=== PATIENT | male | born 1990 | race Caucasian/White ===

== ENCOUNTER 2017-01-10 00:56 | Emergency (ER) | payer OTHER ==
--- NOTE | 2017-01-10 01:02 | EDPHY ---
H & P Source: Patient, Police HPI/ROS: HPI CHIEF COMPLAINT: M1 hold, alcohol intoxication, suicidal ideation HISTORY OF PRESENT ILLNESS: This patient very pleasant 26-year-old male no significant medical history no history of mental health illness, presents emergency room on M1 hold by [facility] after got into an argument with his girlfriend about how much alcohol he drinks. Patient states he drinks about 6-8 beers per evening. He was drinking tonight. He does endorse being intoxicated. He denies any illicit drug use. He got into argument with his girlfriend about how much he drinks and states that he became upset was suicidal his plan was to jump out of his window which is 18 feet high. He denies any ingestion. Past Medical History: No significant medical history Past Surgical History: Hernia repair as a child Social History: Daily alcohol use 6-8 beers, smokes tobacco daily 2 cigarettes , smokes marijuana intermittently Family History: Noncontributory ROS REVIEW OF SYSTEMS: A comprehensive 10 point review of systems is otherwise negative aside from elements mentioned in the history of present illness. Exam Constitutional intoxicated, smells of alcohol, triage nursing summary reviewed , vital signs reviewed, awake/alert. Eyes normal conjunctivae and sclera, EOMI, PERRLA. HENT normal inspection, atraumatic, moist mucus membranes, no epistaxis, neck supple/ no meningismus, no raccoon eyes. Respiratory clear to auscultation bilaterally, normal breath sounds, no respiratory distress, no wheezing. Cardiovascular rate normal, regular rhythm, no murmur, no edema, distal pulses normal. Gastrointestinal soft, non-tender, no rebound, no guarding, normal bowel sounds, no distension, no pulsatile mass. Genitourinary no CVA tenderness. Musculoskeletal no midline vertebral tenderness, full range of motion, no calf swelling, no tenderness of extremities, no meningismus, good pulses, neurovascularly intact. Skin pink, warm, & dry, no rash, skin atraumatic. Neurologic awake, alert and oriented x 3, AAOx3, moves all 4 extremities equally, motor intact, sensory intact, CN II-XII intact, normal cerebellar, normal vision, normal speech. Psychiatric normal mood/affect. Heme/Lymph/Immune no lymphadenopathy. Differential Diagnosis: Includes but is not limited to in a particular order acute alcohol intoxication, suicidal ideation, depression, mood disorder Medical Decision Making: Plan for this patient blood draw for medical clearance. Patient is on M1 hold. He will need sobriety for some alcohol. He will then need mental health evaluation. Re-evaluation: [id number]: No acute events overnight. Patient still intoxicated alcohol waiting for his alcohol level to come down to have appropriate evaluation. (Chadwick Reynoso) Constitutional: Initial Vital Signs Temperature (C) 36.7 C 01/10/17 01:00 Heart Rate 91 01/10/17 01:00 Respiratory Rate 18 01/10/17 01:00 Blood Pressure 177/115 H 01/10/17 01:00 O2 Sat (%) 94 01/10/17 01:00 O2 Delivery Mode Room Air Allergies/Adverse Reactions: No Known Allergies Allergy (Unverified 01/10/17 01:14) Home Medications: Medication Instructions Recorded NK [No Known Home Meds] 01/10/17 Medical Decision Making ED Course/Re-evaluation: 0 700: The patient is signed out to me at change of shift by Dr. Reynoso. Patient is stable. Rechecked the patient on numerous occasions. He is stable throughout his stay. He has psychiatric evaluation. His mental health hold was lifted by Dr. Ghotra. Patient was given warnings prior to leaving. (Jaycee Pradhan) Differential Diagnosis: My differential includes but is not limited to depression, anxiety, alcohol abuse, psychiatric disorder (Jaycee Pradhan) - Data Points Laboratory Results: Laboratory Results 01/10/17 01:03 01/10/17 01:03 01/10/17 01/10/17 01/10/17 01:05 01:03 01:03 WBC 6.79 10^3/uL 10^3/uL (3.80-9.50) RBC 5.25 10^6/uL 10^6/uL (4.40-6.38) Hgb 16.5 g/dL g/dL (13.7-17.5) Hct 47.3 % % (40.0-51.0) MCV 90.1 fL fL (81.5-99.8) MCH 31.4 pg pg (27.9-34.1) MCHC 34.9 g/dL g/dL (32.4-36.7) RDW 12.1 % % (11.5-15.2) Plt Count 190 10^3/uL 10^3/uL (150-400) MPV 10.7 fL fL (8.7-11.7) Neut % (Auto) 57.0 % % (39.3-74.2) Lymph % (Auto) 37.3 % % (15.0-45.0) [place] % (Auto) 4.9 % % (4.5-13.0) Eos % (Auto) 0.1 % L % (0.6-7.6) Baso % (Auto) 0.6 % % (0.3-1.7) Nucleat RBC Rel Count 0.0 % % (0.0-0.2) Absolute Neuts (auto) 3.87 10^3/uL 10^3/uL (1.70-6.50) Absolute Lymphs (auto) 2.53 10^3/uL 10^3/uL (1.00-3.00) Absolute Monos (auto) 0.33 10^3/uL 10^3/uL (0.30-0.80) Absolute Eos (auto) 0.01 10^3/uL L 10^3/uL (0.03-0.40) Absolute Basos (auto) 0.04 10^3/uL 10^3/uL (0.02-0.10) Absolute Nucleated RBC 0.00 10^3/uL 10^3/uL (0-0.01) Immature Gran % 0.1 % % (0.0-1.1) Immature Gran # 0.01 10^3/uL 10^3/uL (0.00-0.10) Sodium 147 mEq/L H mEq/L (134-144) Potassium 4.4 mEq/L mEq/L (3.5-5.2) Chloride 106 mEq/L mEq/L (97-110) Carbon Dioxide 23 mEq/l mEq/l (22-31) Anion Gap 18 mEq/L H mEq/L (8-16) BUN 10 mg/dL mg/dL (7-23) Creatinine 0.9 mg/dL mg/dL (0.7-1.3) Estimated GFR > 60 Glucose 129 mg/dL H mg/dL (70-100) Calcium 10.0 mg/dL mg/dL (8.5-10.4) Salicylates < 1.0 mg/dL L mg/dL (2.0-20.0) Urine Opiates Screen NEGATIVE (NEGATIVE) Acetaminophen < 10 mcg/mL L mcg/mL (10.0-30.0) Urine Barbiturates NEGATIVE (NEGATIVE) Ur Phencyclidine Scrn NEGATIVE (NEGATIVE) Ur Amphetamine Screen NEGATIVE (NEGATIVE) U Benzodiazepines Scrn NEGATIVE (NEGATIVE) Urine Cocaine Screen NEGATIVE (NEGATIVE) U Marijuana (THC) Screen NON-NEGATIVE H (NEGATIVE) Ethyl Alcohol 276 mg/dL H mg/dL (0-10) Departure - Departure Disposition: Home, Routine, Self-Care Clinical Impression: Alcohol intoxication Qualifiers: Complication of substance-induced condition: uncomplicated Qualified Code(s): F10.120 - Alcohol abuse with intoxication, uncomplicated Condition: Good Instructions: Alcohol Intoxication (ED) Referrals: NONE *PRIMARY CARE P,. [Primary Care Provider] - As per Instructions
[2017-01-10 01:14] VITALS: RESP 18
[2017-01-10 02:51] LABS: % IMMATURE GRANULYOCYTES 0.1 % (0.0-1.1); ABSOLUTE IMMATURE GRANULOCYTES 0.01 10^3/uL (0.00-0.10); ADD DIFF? NO; ADD MORPH? NO; ADD SCAN? NO; ATYPICAL LYMPHOCYTE FLAG 0 (0-99); FRAGMENT RBC FLAG 0 (0-99); HEMATOCRIT 47.3 % (40.0-51.0); HEMOGLOBIN 16.5 g/dL (13.7-17.5); LEFT SHIFT FLG 0 (0-99); LIPEMIA HEMOLYSIS FLAG 90 (0-99); MEAN CELL HEMOGLOBIN 31.4 pg (27.9-34.1); MEAN CELL HEMOGLOBIN CONCENTR. 34.9 g/dL (32.4-36.7); MEAN CELL VOLUME 90.1 fL (81.5-99.8); MEAN PLATELET VOLUME 10.7 fL (8.7-11.7); PLATELET CLUMPS FLAG 10 (0-99); PLATELET COUNT 190 10^3/uL (150-400); RED BLOOD CELL COUNT 5.25 10^6/uL (4.40-6.38); RED CELL DISTRIBUTION WIDTH 12.1 % (11.5-15.2)
[2017-01-10 02:59] LABS: ANION GAP 18 mEq/L (8-16); CARBON DIOXIDE 23 mEq/l (22-31); CHLORIDE 106 mEq/L (97-110); CREATININE 0.9 mg/dL (0.7-1.3); ETHANOL SERUM 276 mg/dL (0-10); GLOMERULAR FILTRATION RATE > 60; GLUCOSE 129 mg/dL (70-100); POTASSIUM 4.4 mEq/L (3.5-5.2); SALICYLATE < 1.0 mg/dL (2.0-20.0); SODIUM 147 mEq/L (134-144)
[2017-01-10 12:48] VITALS: BP 125/86; PULSE 89; TEMP 98.2; O2SAT 97
== END 2017-01-10 12:36 | disposition home or self-care (01) ==
LOC: EEVIPCON 00:56
DX: F10.120 Alcohol abuse with intoxication, uncomplicated (principal); F17.210 Nicotine dependence, cigarettes, uncomplicated
CPT/HCPCS: 80305; G0480